=== PATIENT | male | born 1945 | race Caucasian/White ===

== ENCOUNTER 2017-08-02 12:26 | Inpatient (IN) | payer OTHER ==
[~2017-08-02] VITALS: Ht 188 cm; Wt 106.3 kg
[~2017-08-02 12:26] MED LIST: AMLO2.5T PO; CALCTAB25 PO; CHOL1TAB42 PO; CLOP75TA28 PO; FENO160T8 PO; GABA400C PO; HYDR-531 PO; ISOS30TA4 PO; LEVO25TA6 PO; METF-370 PO; METO-158 PO; METO25TA3 PO; NIAC500T71 PO; OMEG120015 PO; PANT40TA2 PO; SIMV20TA90 PO; [UNRECOGNIZED DRUG - CODE] PO
[2017-08-02] MEDS ORDERED: SODIUM CHLORIDE 0.9% 1,000 ML IV ONE (12:59)
[2017-08-02 13:32] LABS: Basophils # (auto) 0 uL; Basophils % (auto) 0.4 % (0.0-2.0); Eosinophils # (auto) 0.1 uL; Mean Corpuscular Hgb Conc. 32.3 g/dL (32.0-36.0); Nucleated Red Blood Cells % 0.2 %
[2017-08-02 13:33] LABS: Eosinophils % (auto) 0.7 % (0.0-7.0); Hematocrit 52.8 % (41.0-53.0); Hemoglobin 17.1 g/dL (13.5-17.5); Lymphocytes % (auto) 27.8 % (10.0-50.0); Mean Corpuscular Hemoglobin 27.8 pg (28.0-32.0); Mean Corpuscular Volume 85.9 fL (80.0-100.0); Monocytes # (auto) 0.7 uL; Monocytes % (auto) 6.9 % (0.0-12.0); Neutrophils # (auto) 6.8 uL; Neutrophils % (auto) 64.2 % (37.0-80.0); Platelet Count (auto) 276 10^3/uL (140-450); Red Blood Cells 6.14 10^6/uL (4.5-5.90); Red Cell Distribution Width 16.3 % (11.8-14.3); White Blood Cell 10.6 10^3/uL (4.4-10.8)
[2017-08-02 13:55] LABS: INR 1.15 (0.9-1.15); Partial Thromboplastin Time 30.3 sec (22.64-33.71); Prothrombin Time 12.5 sec (9.37-12.3)
[2017-08-02 14:22] LABS: Albumin 3.6 g/dL (3.4-5.0); BUN/Creatinine Ratio 21.7; Bilirubin, Total 0.7 mg/dL (0.2-1.0); Calcium 9.3 mg/dL (8.5-10.1); Potassium 4.8 mmol/L (3.5-5.1); Total Protein 8.1 g/dL (6.4-8.2)
[2017-08-02] MEDS ORDERED: ENOXAPARIN SOD 100 MG/1 ML SYRINGE SC ONE (14:45)
[2017-08-02] MEDS ORDERED: ASPirin 81 mg TAB PO ONE (14:45)
[2017-08-02] MEDS ORDERED: NITROGLYCERIN 0.4 MG SL TAB SL PRN (15:00)
[2017-08-02] MEDS ORDERED: CLOPIDOGREL BISULFATE 75 MG TAB PO ONE (15:00)
[2017-08-02] MEDS ORDERED: MORPHINE SULF INJ 2 MG/ML SYRINGE 1ML IV PRN (15:00)
[2017-08-02] MEDS ORDERED: DEXTROSE (50%) 50ML SYRG IV PRN (15:15)
[2017-08-02] MEDS ORDERED: SODIUM CHLORIDE 0.9% 1,000 ML IV SCH (16:40)
[2017-08-02] MEDS ORDERED: diphenhdrAMINE HCL 50 MG/1 ML VL IV ONE (16:45)
[2017-08-02] MEDS ORDERED: cloNIDine 0.2 mg/24hr 7DAY PATCH TD ONE (17:00)
[2017-08-02] MEDS: InsuLIN REG 1unit/0.01ml Soln (100units/ml) SC SCH ×2 (17:00→22:04)
[2017-08-02] MEDS: ACCU-CHEK COMFORT CURVE STRIP VI SCH ×2 (17:14→22:00)
[2017-08-02] MEDS ORDERED: cloNIDine HCL 0.1 MG TAB PO ONE (17:30)
[2017-08-02 19:45] VITALS: BP 144/72
[2017-08-02] MEDS ORDERED: methylPREDNISolone SOD SUCC 40 MG/ML VL IM ONE (19:45)
[2017-08-02 22:00] VITALS: BP 144/72
[2017-08-02] MEDS: ENOXAPARIN SOD 120 MG/0.8 ML SYRINGE SC SCH (22:00)
[2017-08-02 23:38] LABS: Urine Bacteria NONE SEEN /hpf (None Seen); Urine Blood Negative /uL (Negative); Urine Specific Gravity 1.012 (1.001-1.035); Urine WBC <1 /hpf (0 - 3)
[2017-08-03 01:50] LABS: Albumin 3.2 g/dL (3.4-5.0); BUN/Creatinine Ratio 19.8; Potassium 4.6 mmol/L (3.5-5.1)
[2017-08-03 02:07] LABS: Bilirubin, Total 0.5 mg/dL (0.2-1.0); Total Protein 7.3 g/dL (6.4-8.2)
[2017-08-03 05:11] VITALS: BP 131/77
[2017-08-03] MEDS: HYDROcodone-ACET 5/325MG TAB PO PRN ×3 (06:05→23:30)
[2017-08-03 06:33] LABS: Basophils # (auto) 0 uL; Basophils % (auto) 0.1 % (0.0-2.0); Eosinophils # (auto) 0 uL; Eosinophils % (auto) 0.2 % (0.0-7.0); Hematocrit 50.8 % (41.0-53.0); Hemoglobin 16.7 g/dL (13.5-17.5); Lymphocytes # (auto) 1.9 uL; Lymphocytes % (auto) 25.6 % (10.0-50.0); Mean Corpuscular Hgb Conc. 32.9 g/dL (32.0-36.0); Mean Corpuscular Volume 85.2 fL (80.0-100.0); Monocytes # (auto) 0.2 uL; Monocytes % (auto) 2.1 % (0.0-12.0); Neutrophils # (auto) 5.2 uL; Nucleated Red Blood Cells % 0.1 %; Platelet Count (auto) 260 10^3/uL (140-450); Red Blood Cells 5.96 10^6/uL (4.5-5.90); White Blood Cell 7.3 10^3/uL (4.4-10.8)
[2017-08-03] MEDS: ACCU-CHEK COMFORT CURVE STRIP VI SCH ×4 (06:41→21:45)
[2017-08-03] MEDS: InsuLIN REG 1unit/0.01ml Soln (100units/ml) SC SCH ×5 (06:51→21:54)
[2017-08-03 08:00] VITALS: BP 152/77
[2017-08-03 09:00] VITALS: BP 152/77
[2017-08-03] MEDS: CLOPIDOGREL BISULFATE 75 MG TAB PO SCH (09:46)
[2017-08-03] MEDS: ASPirin 325 MG TAB PO SCH (09:46)
[2017-08-03] MEDS: ENOXAPARIN SOD 120 MG/0.8 ML SYRINGE SC SCH ×2 (09:48→21:45)
[2017-08-03 12:23] VITALS: BP 125/60
[2017-08-03 17:00] VITALS: BP 128/75
[2017-08-03 22:00] VITALS: BP 102/68
[2017-08-04 05:00] VITALS: BP 123/79
[2017-08-04] MEDS: InsuLIN REG 1unit/0.01ml Soln (100units/ml) SC SCH ×3 (06:08→17:48)
[2017-08-04] MEDS: ACCU-CHEK COMFORT CURVE STRIP VI SCH ×3 (06:08→17:00)
[2017-08-04] MEDS: HYDROcodone-ACET 5/325MG TAB PO PRN ×2 (06:48→19:56)
[2017-08-04 09:00] VITALS: BP 136/86
[2017-08-04] MEDS: ENOXAPARIN SOD 120 MG/0.8 ML SYRINGE SC SCH ×2 (10:09→22:23)
[2017-08-04] MEDS: ASPirin 325 MG TAB PO SCH (10:09)
[2017-08-04] MEDS: CLOPIDOGREL BISULFATE 75 MG TAB PO SCH (10:09)
[2017-08-04 13:00] VITALS: BP 105/67
[2017-08-04] MEDS: guaiFENesin-DM 100/10mg/5ml SYR PO PRN ×2 (13:16→18:22)
[2017-08-04] MEDS: ALBUTEROL SULF 2.5 MG/0.5ML(0.5%) NEB SOLN NEB SCH ×3 (16:08→22:49)
[2017-08-04] MEDS: IPRATROPIUM BROM 0.5 MG/2.5ML INH SOL NEB SCH ×3 (16:08→22:49)
[2017-08-04 17:00] VITALS: BP 116/73
[2017-08-04] MEDS ORDERED: DEXTROSE (50%) 50ML SYRG IV PRN (20:30)
[2017-08-04 20:38] LABS: Cholesterol 162 mg/dL (< 200); HDL Cholesterol 30 mg/dL (40-59); LDL Cholesterol 115 mg/dL (< 100); Triglycerides 197 mg/dL (< 150)
[2017-08-04] MEDS: FAMOTIDINE 20 MG TAB PO SCH (22:22)
[2017-08-04 22:31] VITALS: BP 116/73
[2017-08-04 22:47] VITALS: BP 114/73
[2017-08-05] MEDS: ACCU-CHEK COMFORT CURVE STRIP VI SCH ×7 (00:17→23:30)
[2017-08-05] MEDS: ALBUTEROL SULF 2.5 MG/0.5ML(0.5%) NEB SOLN NEB SCH ×6 (02:17→22:44)
[2017-08-05] MEDS: IPRATROPIUM BROM 0.5 MG/2.5ML INH SOL NEB SCH ×6 (02:17→22:44)
[2017-08-05] MEDS: InsuLIN REG 1unit/0.01ml Soln (100units/ml) SC SCH ×7 (04:00→23:30)
[2017-08-05] MEDS: guaiFENesin-DM 100/10mg/5ml SYR PO PRN ×3 (04:12→21:58)
[2017-08-05 05:43] VITALS: BP 124/92
[2017-08-05] MEDS ORDERED: IOHEXOL 350 MG/ML 100ML IJ ONE (07:00)
[2017-08-05] MEDS ORDERED: LIDOCAINE 2%HCL (LOCAL ANESTH.) INJ 20ML MDV ONE (07:01)
[2017-08-05 07:16] LABS: Basophils # (auto) 0.1 uL; Basophils % (auto) 0.6 % (0.0-2.0); Eosinophils # (auto) 0.2 uL; Lymphocytes # (auto) 5.2 uL; Monocytes # (auto) 0.9 uL; White Blood Cell 12.4 10^3/uL (4.4-10.8)
[2017-08-05 07:18] LABS: Eosinophils % (auto) 1.5 % (0.0-7.0); Hematocrit 54.3 % (41.0-53.0); Hemoglobin 17.7 g/dL (13.5-17.5); Lymphocytes % (auto) 41.7 % (10.0-50.0); Mean Corpuscular Hgb Conc. 32.7 g/dL (32.0-36.0); Mean Corpuscular Volume 85.7 fL (80.0-100.0); Monocytes % (auto) 7.7 % (0.0-12.0); Neutrophils % (auto) 48.5 % (37.0-80.0); Nucleated Red Blood Cells % 0.3 %; Platelet Count (auto) 320 10^3/uL (140-450); Red Blood Cells 6.34 10^6/uL (4.5-5.90); Red Cell Distribution Width 15.9 % (11.8-14.3)
[2017-08-05 07:39] LABS: BUN/Creatinine Ratio 20.2; Calcium 9.7 mg/dL (8.5-10.1); Potassium 4.2 mmol/L (3.5-5.1)
[2017-08-05 08:59] VITALS: BP 112/78
[2017-08-05] MEDS: ENOXAPARIN SOD 120 MG/0.8 ML SYRINGE SC SCH ×3 (10:00→21:57)
[2017-08-05] MEDS ORDERED: fentaNYL CITRATE 100 MCG/2 ML VL ONE (10:32)
[2017-08-05] MEDS ORDERED: MIDAZOLAM HCL 1MG/1ML-2 ML VIAL ONE (10:33)
[2017-08-05] MEDS ORDERED: SODIUM CHL 0.9% 50 ML ONE (10:33)
[2017-08-05] MEDS ORDERED: ANGIOMAX 250 MG VIAL IV ONE (10:34)
[2017-08-05] MEDS ORDERED: diphenhdrAMINE HCL 50 MG/1 ML VL ONE (10:48)
[2017-08-05] MEDS: AZITHROMYCIN 250 MG TAB PO SCH (14:16)
[2017-08-05] MEDS: ASPirin 325 MG TAB PO SCH (14:16)
[2017-08-05] MEDS: FAMOTIDINE 20 MG TAB PO SCH ×2 (14:16→21:47)
[2017-08-05] MEDS: CLOPIDOGREL BISULFATE 75 MG TAB PO SCH (14:16)
[2017-08-05] MEDS: HYDROcodone-ACET 5/325MG TAB PO PRN ×2 (14:27→20:54)
[2017-08-05 16:34] VITALS: BP 96/61
[2017-08-05 21:30] VITALS: BP 100/60
[2017-08-06] MEDS: ALBUTEROL SULF 2.5 MG/0.5ML(0.5%) NEB SOLN NEB SCH ×6 (02:00→18:00)
[2017-08-06] MEDS: IPRATROPIUM BROM 0.5 MG/2.5ML INH SOL NEB SCH ×6 (02:00→18:00)
[2017-08-06] MEDS: InsuLIN REG 1unit/0.01ml Soln (100units/ml) SC SCH ×4 (03:45→16:00)
[2017-08-06] MEDS: ACCU-CHEK COMFORT CURVE STRIP VI SCH ×4 (03:45→17:06)
[2017-08-06 05:00] VITALS: BP 93/69
[2017-08-06 06:05] LABS: INR 1.1 (0.9-1.15); Partial Thromboplastin Time 30.6 sec (22.64-33.71)
[2017-08-06] MEDS ORDERED: HEPARIN IN NS 1000Units/500mL 1,500 ML ONE (07:10)
[2017-08-06] MEDS ORDERED: LIDOCAINE 2%HCL (LOCAL ANESTH.) INJ 20ML MDV ONE (07:10)
[2017-08-06] MEDS ORDERED: IOHEXOL 350 MG/ML 100ML IJ ONE ×2 (07:10→13:55)
[2017-08-06 07:16] LABS: Hemoglobin 18.1 g/dL (13.5-17.5); Neutrophils # (auto) 7.7 uL
[2017-08-06 07:18] LABS: Basophils # (auto) 0 uL; Basophils % (auto) 0.4 % (0.0-2.0); Eosinophils # (auto) 0.3 uL; Eosinophils % (auto) 2.4 % (0.0-7.0); Lymphocytes # (auto) 2.8 uL; Lymphocytes % (auto) 23.4 % (10.0-50.0); Mean Corpuscular Hemoglobin 27.5 pg (28.0-32.0); Mean Corpuscular Hgb Conc. 32.2 g/dL (32.0-36.0); Mean Corpuscular Volume 85.4 fL (80.0-100.0); Monocytes % (auto) 8.7 % (0.0-12.0); Neutrophils % (auto) 65.1 % (37.0-80.0); Nucleated Red Blood Cells % 0.1 %; Platelet Count (auto) 316 10^3/uL (140-450); Red Blood Cells 6.59 10^6/uL (4.5-5.90); Red Cell Distribution Width 16.1 % (11.8-14.3); White Blood Cell 11.8 10^3/uL (4.4-10.8)
[2017-08-06 07:24] LABS: Hematocrit 56.3 % (41.0-53.0)
[2017-08-06 07:27] LABS: Albumin 3.3 g/dL (3.4-5.0); BUN/Creatinine Ratio 21.9; Bilirubin, Total 0.9 mg/dL (0.2-1.0); Calcium 9.3 mg/dL (8.5-10.1); Potassium 4.3 mmol/L (3.5-5.1); Total Protein 7.6 g/dL (6.4-8.2)
[2017-08-06] MEDS ORDERED: fentaNYL CITRATE 100 MCG/2 ML VL ONE (08:00)
[2017-08-06] MEDS ORDERED: MIDAZOLAM HCL 1MG/1ML-2 ML VIAL ONE ×2 (08:00→08:44)
[2017-08-06] MEDS ORDERED: ANGIOMAX 250 MG VIAL IV ONE ×2 (08:00→09:25)
[2017-08-06] MEDS ORDERED: SODIUM CHL 0.9% 50 ML ONE ×2 (08:00→09:25)
[2017-08-06 09:00] VITALS: BP_SYST 130; BP_SYST 96; BP_DIAS 64; BP_DIAS 67
[2017-08-06] MEDS: ENOXAPARIN SOD 120 MG/0.8 ML SYRINGE SC SCH (10:00)
[2017-08-06] MEDS: CLOPIDOGREL BISULFATE 75 MG TAB PO SCH (11:50)
[2017-08-06] MEDS: AZITHROMYCIN 250 MG TAB PO SCH (11:50)
[2017-08-06] MEDS: FAMOTIDINE 20 MG TAB PO SCH (11:51)
[2017-08-06] MEDS: ASPirin 325 MG TAB PO SCH (11:51)
[2017-08-06] MEDS: HYDROcodone-ACET 5/325MG TAB PO PRN (12:06)
[2017-08-06 13:00] VITALS: BP 93/60
[2017-08-06] MEDS ORDERED: METO25TA3 PO (13:46)
[2017-08-06] MEDS ORDERED: FENO160T8 PO (13:46)
[2017-08-06] MEDS ORDERED: ALB5IS NEB (13:46)
[2017-08-06] MEDS ORDERED: ASPI-111 PO (13:46)
[2017-08-06] MEDS ORDERED: CLOP75TA28 PO (13:46)
[2017-08-06] MEDS ORDERED: AZIT250T7 PO (13:46)
[2017-08-06] MEDS ORDERED: ATO40T PO (13:46)
[2017-08-06] MEDS ORDERED: DEXTSYP31 OR (13:48)
[2017-08-06] MEDS ORDERED: BUDESONIDE (INHALATION) 0.5 MG/2 ML NEB NEB ONE (14:00)
[2017-08-06] MEDS ORDERED: methylPREDNISolone SOD SUCC 40 MG/ML VL IV ONE (14:30)
[2017-08-06] MEDS ORDERED: FLUT250M2 INH (14:53)
[2017-08-06] MEDS ORDERED: ALBU0.08 HHN (14:54)
[2017-08-06 15:57] VITALS: BP 103/64
[2017-08-06 16:20] VITALS: BP 103/64
[2017-08-06 17:00] VITALS: BP 103/65
[2017-08-06] MEDS ORDERED: methylPREDNISolone SOD SUCC 40 MG/ML VL IV SCH (22:00)
== END 2017-08-06 19:30 | disposition home health service (06) | DRG 250 ==
LOC: EDBD 12:26 → ER 12:26 → TELE 12:27 → TELE-CENTR 19:45
PROVIDERS: ADMIT Internal Medicine; ATTEND Internal Medicine
PROC: 4A023N7 Measurement of Cardiac Sampling and Pressure, Left Heart, Percutaneous Approach (ICD-10-PCS; principal; 2017-08-05)
PROC: B2111ZZ Fluoroscopy of Multiple Coronary Arteries using Low Osmolar Contrast (ICD-10-PCS; 2017-08-05)
PROC: 02703ZZ Dilation of Coronary Artery, One Artery, Percutaneous Approach (ICD-10-PCS; 2017-08-06)
DX: I21.4 Non-ST elevation (NSTEMI) myocardial infarction (principal); J96.21 Acute and chronic respiratory failure with hypoxia; I74.5 Embolism and thrombosis of iliac artery; J44.0 Chronic obstructive pulmonary disease with (acute) lower respiratory infection; J44.1 Chronic obstructive pulmonary disease with (acute) exacerbation; I13.0 Hypertensive heart and chronic kidney disease with heart failure and stage 1 through stage 4 chronic kidney disease, or unspecified chronic kidney disease; I50.9 Heart failure, unspecified; E11.22 Type 2 diabetes mellitus with diabetic chronic kidney disease; J20.9 Acute bronchitis, unspecified; N18.9 Chronic kidney disease, unspecified; I25.119 Atherosclerotic heart disease of native coronary artery with unspecified angina pectoris; B34.9 Viral infection, unspecified; E78.5 Hyperlipidemia, unspecified; I25.82 Chronic total occlusion of coronary artery; Z53.9 Procedure and treatment not carried out, unspecified reason; Z87.891 Personal history of nicotine dependence; Z86.79 Personal history of other diseases of the circulatory system; Z90.49 Acquired absence of other specified parts of digestive tract; Z95.5 Presence of coronary angioplasty implant and graft; Z83.3 Family history of diabetes mellitus; Z82.49 Family history of ischemic heart disease and other diseases of the circulatory system; Z79.899 Other long term (current) drug therapy
CPT/HCPCS: 36415; 36600; 71045; 71046; 71275; 80048; 80053; 80061; 81001; 82805; 82962; 83036; 83880; 84146; 84484; 85025; 85610; 85730; 86850; 86900; 86901; 86920; 87040; 87400; 92920; 93005; 93306; 93458; 94640; 96360; 96361; 96372; 99152; J1815; J2250

== ENCOUNTER 2020-11-05 19:14 | Observation (INO) | payer OTHER ==
[~2020-11-05] VITALS: Ht 172.7 cm; Wt 108.9 kg
[~2020-11-05 19:14] MED LIST changes: +ALB5IS NEB; +ALBU0.08 HHN; -AMLO2.5T PO; +ASPI-109 PO; +ATO40T PO; +AZIT250T9 PO; +DEXTSYP31 OR; +FLUT250M2 INH; -METO-158 PO; -METO25TA3 PO; +METO25TA36 PO; -SIMV20TA90 PO
[2020-11-05 20:12] LABS: Basophils # (auto) 0 10 ^3/uL (0-0.2); Basophils % (auto) 0.7 % (0.0-2.0); Eosinophils # (auto) 0.3 10 ^3/uL (0-0.8); Eosinophils % (auto) 5.1 % (0.0-7.0); Hematocrit 41.8 % (41.0-53.0); Hemoglobin 13.9 g/dL (13.5-17.5); Lymphocytes # (auto) 1.3 10 ^3/uL (0.4-5.4); Lymphocytes % (auto) 19.3 % (10.0-50.0); Mean Corpuscular Hemoglobin 29.9 pg (28.0-32.0); Mean Corpuscular Hgb Conc. 33.1 g/dL (32.0-36.0); Mean Corpuscular Volume 90.4 fL (80.0-100.0); Monocytes # (auto) 0.7 10 ^3/uL (0-1.3); Monocytes % (auto) 10.2 % (0.0-12.0); Neutrophils # (auto) 4.3 10 ^3/uL (1.6-8.6); Neutrophils % (auto) 64.7 % (37.0-80.0); Nucleated Red Blood Cells % 0.1 %; Platelet Count (auto) 179 10^3/uL (140-450); Red Blood Cells 4.63 10^6/uL (4.5-5.90); Red Cell Distribution Width 17.7 % (11.8-14.3); White Blood Cell 6.7 10^3/uL (4.4-10.8)
[2020-11-05 20:20] LABS: Albumin 3.2 g/dL (3.4-5.0); Calcium 9.5 mg/dL (8.5-10.1); Magnesium 1.7 mg/dL (1.6-2.6); Potassium 4.3 mmol/L (3.5-5.1)
[2020-11-05 20:26] LABS: BUN/Creatinine Ratio 19.5; Bilirubin, Total 1.7 mg/dL (0.2-1.0); Total Protein 6.5 g/dL (6.4-8.2)
[2020-11-05 20:30] LABS: INR 1.54 (0.9-1.15)
[2020-11-05] MEDS ORDERED: FUROSEMIDE 40 MG/4 ML VIAL IV ONE (22:15)
[2020-11-05 23:31] LABS: Urine Bacteria NONE SEEN /hpf (None Seen); Urine Blood Negative /uL (Negative); Urine Specific Gravity 1.018 (1.001-1.035); Urine WBC <1 /hpf (0 - 3)
[2020-11-06] VITALS (7 sets, daily range): BP systolic 97–124; BP diastolic 49–77
[2020-11-06] MEDS ORDERED: MORPHINE SULF INJ 2 MG/ML SYRINGE 1ML IV PRN (00:15)
[2020-11-06] MEDS ORDERED: DEXTROSE (50%) 50ML SYRG IV ONE (00:15)
[2020-11-06] MEDS ORDERED: NITROGLYCERIN 0.4 MG SL TAB SL PRN (00:15)
[2020-11-06] MEDS: ACCU-CHEK COMFORT CURVE STRIP VI SCH ×4 (00:26→17:51)
[2020-11-06] MEDS: InsuLIN REG 1unit/0.01ml Soln (100units/ml) SC SCH ×4 (00:27→17:53)
[2020-11-06] MEDS ORDERED: HYDROcodone-ACET 10/325MG TAB PO PRN (04:30)
[2020-11-06] MEDS: FUROSEMIDE 20 MG/2 ML VIAL IV SCH (06:00)
[2020-11-06] MEDS ORDERED: ALBUTEROL SULF 2.5 MG/0.5ML(0.5%) NEB SOLN NEB SCH (06:00)
[2020-11-06] MEDS ORDERED: IPRATROPIUM BROM 0.5 MG/2.5ML INH SOL NEB PRN ×2 (06:00→12:00)
[2020-11-06] MEDS: GABAPENTIN 400 MG CAP PO SCH ×2 (06:01→14:37)
[2020-11-06] MEDS: methylPREDNISolone SOD SUCC 125 MG/2 ML VL IV SCH ×2 (06:01→14:37)
[2020-11-06] MEDS ORDERED: LEVOTHYROXINE SODIUM 25 MCG TAB PO SCH (07:00)
[2020-11-06 08:31] LABS: Basophils # (auto) 0.1 10 ^3/uL (0-0.2); Basophils % (auto) 0.9 % (0.0-2.0); Eosinophils # (auto) 0.2 10 ^3/uL (0-0.8); Eosinophils % (auto) 3.8 % (0.0-7.0); Lymphocytes # (auto) 0.9 10 ^3/uL (0.4-5.4); Lymphocytes % (auto) 13.5 % (10.0-50.0); Mean Corpuscular Hemoglobin 29.4 pg (28.0-32.0); Mean Corpuscular Hgb Conc. 32.4 g/dL (32.0-36.0); Mean Corpuscular Volume 90.7 fL (80.0-100.0); Monocytes # (auto) 0.3 10 ^3/uL (0-1.3); Monocytes % (auto) 4.6 % (0.0-12.0); Neutrophils # (auto) 4.9 10 ^3/uL (1.6-8.6); Neutrophils % (auto) 77.2 % (37.0-80.0); Platelet Count (auto) 188 10^3/uL (140-450); Red Blood Cells 4.74 10^6/uL (4.5-5.90); Red Cell Distribution Width 17.7 % (11.8-14.3); White Blood Cell 6.4 10^3/uL (4.4-10.8)
[2020-11-06 08:50] LABS: Albumin 3.4 g/dL (3.4-5.0); Potassium 4.1 mmol/L (3.5-5.1)
[2020-11-06 08:53] LABS: BUN/Creatinine Ratio 20.8; Total Protein 6.6 g/dL (6.4-8.2)
[2020-11-06] MEDS ORDERED: CALCIUM W/VIT D (600MG/400IU) TAB PO SCH (10:00)
[2020-11-06] MEDS ORDERED: CLOPIDOGREL BISULFATE 75 MG TAB PO SCH (10:00)
[2020-11-06] MEDS ORDERED: ISOSORBIDE MONONITRATE ER 60 MG TAB PO SCH (10:00)
[2020-11-06] MEDS ORDERED: FLUTICASONE SALMETEROL IN SCH (10:00)
[2020-11-06] MEDS ORDERED: ASPirin 325 MG TAB PO SCH (10:00)
[2020-11-06] MEDS ORDERED: PANTOPRAZOLE 40 MG TAB PO SCH (10:00)
[2020-11-06] MEDS ORDERED: FURO1TAB33 PO (11:32)
[2020-11-06] MEDS ORDERED: IPRA0.00 IN (11:35)
[2020-11-06] MEDS ORDERED: FUROSEMIDE 40 MG/4 ML VIAL IV ONE (12:00)
[2020-11-06] MEDS ORDERED: FUROSEMIDE 20 MG/2 ML VIAL IV SCH (12:00)
[2020-11-06] MEDS: ALBUTEROL SULF 2.5 MG/0.5ML(0.5%) NEB SOLN NEB SCH ×2 (13:40→19:08)
[2020-11-06] MEDS ORDERED: SODIUM CHLORIDE 0.9% 250 ML IV ONE (15:00)
[2020-11-06] MEDS ORDERED: FUROSEMIDE 40 MG/4 ML VIAL IV SCH (18:00)
[2020-11-06] MEDS ORDERED: METOPROLOL SUCCINATE XL 50 MG TAB PO SCH (18:00)
[2020-11-06] MEDS ORDERED: ATORVASTATIN 20 MG TAB PO SCH (22:00)
== END 2020-11-06 18:10 | disposition home or self-care (01) ==
LOC: EDBD 19:14 → ER 19:18 → INTOOBSV 11-06 00:21 → TELE 11-06 00:21 → TELE-CENTR 11-06 03:23
PROVIDERS: ADMIT Internal Medicine; ATTEND Internal Medicine
DX: I13.0 Hypertensive heart and chronic kidney disease with heart failure and stage 1 through stage 4 chronic kidney disease, or unspecified chronic kidney disease (principal); I50.33 Acute on chronic diastolic (congestive) heart failure; Z20.822 Contact with and (suspected) exposure to COVID-19; E11.22 Type 2 diabetes mellitus with diabetic chronic kidney disease; N18.30 Chronic kidney disease, stage 3 unspecified; I25.10 Atherosclerotic heart disease of native coronary artery without angina pectoris; J44.9 Chronic obstructive pulmonary disease, unspecified; E66.9 Obesity, unspecified; E78.5 Hyperlipidemia, unspecified; F32.9 Major depressive disorder, single episode, unspecified; I42.9 Cardiomyopathy, unspecified; I70.0 Atherosclerosis of aorta; Z79.51 Long term (current) use of inhaled steroids; Z79.82 Long term (current) use of aspirin; Z86.79 Personal history of other diseases of the circulatory system; Z99.81 Dependence on supplemental oxygen; Z68.36 Body mass index [BMI] 36.0-36.9, adult
CPT/HCPCS: 36415; 71045; 80053; 81001; 82962; 83036; 83605; 83735; 83880; 84484; 85025; 85610; 85730; 87426; 93005; 93306; 94640; 96361; 96372; 96374; 96375; 96376; 99285; G0378; J1815; J1940; J2930; J7030

== ENCOUNTER 2021-01-08 02:21 | Inpatient (IN) | payer OTHER ==
[~2021-01-08] VITALS: Ht 180.3 cm; Wt 108.0 kg
[~2021-01-08 02:21] MED LIST changes: -ASPI-109 PO; -AZIT250T9 PO; +FURO1TAB33 PO; +IPRA0.00 IN; +ISOS1TAB28 PO; -ISOS30TA4 PO; -METO25TA36 PO; -PANT40TA2 PO
[2021-01-08] MEDS ORDERED: levoFLOXacin 500 MG/100 ML PREMIX BAG IV ONE (02:30)
[2021-01-08] MEDS ORDERED: SODIUM CHLORIDE 0.9% 2,000 ML IV ONE (02:45)
[2021-01-08 03:02] LABS: Basophils # (auto) 0 10 ^3/uL (0-0.2); Basophils % (auto) 0.8 % (0.0-2.0); Eosinophils # (auto) 0.3 10 ^3/uL (0-0.8); Eosinophils % (auto) 6.1 % (0.0-7.0); Hematocrit 40.1 % (41.0-53.0); Hemoglobin 13.5 g/dL (13.5-17.5); Lymphocytes # (auto) 1.5 10 ^3/uL (0.4-5.4); Mean Corpuscular Hemoglobin 30.5 pg (28.0-32.0); Mean Corpuscular Hgb Conc. 33.7 g/dL (32.0-36.0); Mean Corpuscular Volume 90.5 fL (80.0-100.0); Monocytes # (auto) 0.5 10 ^3/uL (0-1.3); Monocytes % (auto) 9.6 % (0.0-12.0); Neutrophils # (auto) 3.2 10 ^3/uL (1.6-8.6); Neutrophils % (auto) 56.5 % (37.0-80.0); Red Blood Cells 4.43 10^6/uL (4.5-5.90); Red Cell Distribution Width 16.6 % (11.8-14.3); White Blood Cell 5.6 10^3/uL (4.4-10.8)
[2021-01-08 03:18] LABS: Alanine Aminotransferase 25 U/L (16-61); Albumin 3.5 g/dL (3.4-5.0); Anion Gap 7 (5-15); Aspartate Aminotransferase 32 U/L (15-37); Blood Alcohol < 3.0 mg/dL (0-5); Blood Urea Nitrogen 53 mg/dL (7-18); Calcium 9.5 mg/dL (8.5-10.1); Carbon Dioxide 28 mmol/L (21-32); Chloride 105 mmol/L (98-107); GFR African American 41 mL/min; GFR Non-African American 34 mL/min; Glucose 117 mg/dL (74-106); Potassium 3.8 mmol/L (3.5-5.1); Sodium 140 mmol/L (136-145)
[2021-01-08 03:19] LABS: INR 1.25 (0.9-1.15)
[2021-01-08 03:23] LABS: Alkaline Phosphatase 51 U/L (45-117); Bilirubin, Total 1.1 mg/dL (0.2-1.0); Total Protein 6.7 g/dL (6.4-8.2)
[2021-01-08] MEDS ORDERED: PIPERACILLIN-TAZOB 3.375GM 100 ML IV ONE (03:45)
[2021-01-08] MEDS ORDERED: VANCOMYCIN 1GM/250ML 250 ML IV ONE (03:45)
[2021-01-08 04:27] LABS: Alcohol, Urine < 3.0 mg/dL (0-10); Amphetamine Screen, Urine NEGATIVE (NEGATIVE); Benzodiazephine Screen, Urine NEGATIVE (NEGATIVE); Cocaine Screen, Urine NEGATIVE (NEGATIVE); Opiate Scree,Urine POSITIVE (NEGATIVE); Phencyclidine Screen, Urine NEGATIVE (NEGATIVE)
[2021-01-08 04:35] LABS: Barbiturate Scree,Urine NEGATIVE (NEGATIVE); Cannabinoid Screen, Urine NEGATIVE (NEGATIVE)
[2021-01-08 04:48] LABS: Urine Bacteria NONE SEEN /hpf (None Seen); Urine Blood Negative /uL (Negative); Urine Hyaline Cast MANY /lpf (0 - 2); Urine Mucus FEW (None Seen); Urine Specific Gravity 1.019 (1.001-1.035); Urine WBC 2 /hpf (0 - 3)
[2021-01-08] MEDS ORDERED: ALBUTEROL SULF 2.5 MG/0.5ML(0.5%) NEB SOLN NEB PRN ×2 (06:30→07:45)
[2021-01-08] MEDS ORDERED: ONDANSETRON HCL 4 MG/2 ML VIAL IV PRN (06:30)
[2021-01-08] MEDS ORDERED: DEXTROSE (50%) 50ML SYRG IV PRN (06:30)
[2021-01-08] MEDS ORDERED: SODIUM CHLORIDE 0.9% 1,000 ML IV ONE (06:30)
[2021-01-08] MEDS: ACCU-CHEK COMFORT CURVE STRIP VI SCH ×4 (07:00→22:48)
[2021-01-08] MEDS: InsuLIN REG 1unit/0.01ml Soln (100units/ml) SC SCH ×4 (07:00→22:43)
[2021-01-08 07:32] LABS: Basophils # (auto) 0 10 ^3/uL (0-0.2); Basophils % (auto) 0.5 % (0.0-2.0); Eosinophils # (auto) 0.3 10 ^3/uL (0-0.8); Eosinophils % (auto) 4.4 % (0.0-7.0); Hematocrit 40.4 % (41.0-53.0); Hemoglobin 13.4 g/dL (13.5-17.5); Lymphocytes # (auto) 1.4 10 ^3/uL (0.4-5.4); Lymphocytes % (auto) 23.9 % (10.0-50.0); Mean Corpuscular Hemoglobin 30.2 pg (28.0-32.0); Mean Corpuscular Hgb Conc. 33.2 g/dL (32.0-36.0); Monocytes # (auto) 0.5 10 ^3/uL (0-1.3); Monocytes % (auto) 9.4 % (0.0-12.0); Neutrophils # (auto) 3.5 10 ^3/uL (1.6-8.6); Neutrophils % (auto) 61.8 % (37.0-80.0); Nucleated Red Blood Cells % 0.2 %; Red Blood Cells 4.43 10^6/uL (4.5-5.90); Red Cell Distribution Width 16.5 % (11.8-14.3); White Blood Cell 5.7 10^3/uL (4.4-10.8)
[2021-01-08 07:50] LABS: BUN/Creatinine Ratio 26.1; Calcium 8.9 mg/dL (8.5-10.1); Potassium 3.8 mmol/L (3.5-5.1)
[2021-01-08] MEDS: CLOPIDOGREL BISULFATE 75 MG TAB PO SCH (09:44)
[2021-01-08] MEDS: methylPREDNISolone SOD SUCC 40 MG/ML VL IV SCH ×2 (09:44→22:43)
[2021-01-08] MEDS: CALCIUM W/VIT D (600MG/400IU) TAB PO SCH (09:44)
[2021-01-08 10:17] VITALS: BP 93/59
[2021-01-08] MEDS: GABAPENTIN 400 MG CAP PO SCH ×3 (13:13→23:19)
[2021-01-08] MEDS: HEPARIN SODIUM (PORCINE) 5000 UNITS/ML 1ML VIAL SC SCH ×2 (14:22→22:45)
[2021-01-08] MEDS: ATORVASTATIN 20 MG TAB PO SCH (22:44)
[2021-01-09] MEDS: HYDROcodone-ACET 10/325MG TAB PO PRN ×2 (06:04→17:22)
[2021-01-09] MEDS: LEVOTHYROXINE SODIUM 25 MCG TAB PO SCH (06:04)
[2021-01-09] MEDS: HEPARIN SODIUM (PORCINE) 5000 UNITS/ML 1ML VIAL SC SCH ×3 (06:05→20:20)
[2021-01-09] MEDS: ACCU-CHEK COMFORT CURVE STRIP VI SCH ×4 (06:13→20:33)
[2021-01-09] MEDS: InsuLIN REG 1unit/0.01ml Soln (100units/ml) SC SCH ×4 (06:14→20:32)
[2021-01-09 07:27] LABS: Basophils # (auto) 0 10 ^3/uL (0-0.2); Basophils % (auto) 0.4 % (0.0-2.0); Eosinophils # (auto) 0 10 ^3/uL (0-0.8); Eosinophils % (auto) 0.1 % (0.0-7.0); Hematocrit 41.4 % (41.0-53.0); Hemoglobin 14.3 g/dL (13.5-17.5); Lymphocytes # (auto) 1.1 10 ^3/uL (0.4-5.4); Lymphocytes % (auto) 13.8 % (10.0-50.0); Mean Corpuscular Hemoglobin 30.9 pg (28.0-32.0); Mean Corpuscular Hgb Conc. 34.5 g/dL (32.0-36.0); Mean Corpuscular Volume 89.7 fL (80.0-100.0); Monocytes # (auto) 0.2 10 ^3/uL (0-1.3); Monocytes % (auto) 3.1 % (0.0-12.0); Neutrophils # (auto) 6.4 10 ^3/uL (1.6-8.6); Neutrophils % (auto) 82.6 % (37.0-80.0); Nucleated Red Blood Cells % 0.1 %; Red Blood Cells 4.61 10^6/uL (4.5-5.90); Red Cell Distribution Width 16.5 % (11.8-14.3); White Blood Cell 7.7 10^3/uL (4.4-10.8)
[2021-01-09 07:47] LABS: BUN/Creatinine Ratio 24.4; Calcium 9.6 mg/dL (8.5-10.1); Potassium 4.3 mmol/L (3.5-5.1)
[2021-01-09] MEDS: methylPREDNISolone SOD SUCC 40 MG/ML VL IV SCH ×2 (10:28→20:21)
[2021-01-09] MEDS: CLOPIDOGREL BISULFATE 75 MG TAB PO SCH (10:28)
[2021-01-09] MEDS: CALCIUM W/VIT D (600MG/400IU) TAB PO SCH (10:28)
[2021-01-09 12:45] VITALS: BP 104/58
[2021-01-09 13:00] VITALS: BP 104/58
[2021-01-09] MEDS ORDERED: ASPI325T4 PO (13:42)
[2021-01-09] MEDS ORDERED: CARV12.544 PO (13:42)
[2021-01-09] MEDS ORDERED: GABAPENTIN 100 MG CAP PO SCH (14:00)
[2021-01-09] MEDS: GABAPENTIN 400 MG CAP PO SCH ×2 (14:09→20:20)
[2021-01-09 17:00] VITALS: BP 101/71
[2021-01-09] MEDS: ATORVASTATIN 20 MG TAB PO SCH (17:21)
[2021-01-09 20:00] VITALS: BP 111/71
[2021-01-09 22:00] VITALS: BP 111/71
[2021-01-10] MEDS: HYDROcodone-ACET 10/325MG TAB PO PRN (03:35)
[2021-01-10 04:59] VITALS: BP 110/72
[2021-01-10] MEDS: GABAPENTIN 400 MG CAP PO SCH ×2 (05:46→14:00)
[2021-01-10] MEDS: LEVOTHYROXINE SODIUM 25 MCG TAB PO SCH (05:46)
[2021-01-10] MEDS: HEPARIN SODIUM (PORCINE) 5000 UNITS/ML 1ML VIAL SC SCH ×2 (05:48→14:00)
[2021-01-10] MEDS: ACCU-CHEK COMFORT CURVE STRIP VI SCH ×2 (05:53→12:05)
[2021-01-10] MEDS: InsuLIN REG 1unit/0.01ml Soln (100units/ml) SC SCH ×2 (06:18→11:30)
[2021-01-10 09:00] VITALS: BP 135/76
[2021-01-10] MEDS: CALCIUM W/VIT D (600MG/400IU) TAB PO SCH (10:36)
[2021-01-10] MEDS: CLOPIDOGREL BISULFATE 75 MG TAB PO SCH (10:36)
[2021-01-10] MEDS: methylPREDNISolone SOD SUCC 40 MG/ML VL IV SCH (10:36)
[2021-01-10 12:47] VITALS: BP 119/78
== END 2021-01-10 15:45 | disposition home or self-care (01) | DRG 70 ==
LOC: EDBD 02:21 → ER 02:21 → OVERFLOW 06:57 → TELE-WESTW 01-09 11:50
PROVIDERS: ADMIT Hospitalist; ATTEND Hospitalist
DX: G93.41 Metabolic encephalopathy (principal); J96.21 Acute and chronic respiratory failure with hypoxia; J44.1 Chronic obstructive pulmonary disease with (acute) exacerbation; L03.116 Cellulitis of left lower limb; L03.115 Cellulitis of right lower limb; I13.0 Hypertensive heart and chronic kidney disease with heart failure and stage 1 through stage 4 chronic kidney disease, or unspecified chronic kidney disease; J98.11 Atelectasis; N17.9 Acute kidney failure, unspecified; T40.2X1A Poisoning by other opioids, accidental (unintentional), initial encounter; Z20.822 Contact with and (suspected) exposure to COVID-19; I27.20 Pulmonary hypertension, unspecified; I25.10 Atherosclerotic heart disease of native coronary artery without angina pectoris; I71.4 Abdominal aortic aneurysm, without rupture; N18.9 Chronic kidney disease, unspecified; E86.0 Dehydration; I50.9 Heart failure, unspecified; E11.22 Type 2 diabetes mellitus with diabetic chronic kidney disease; E11.51 Type 2 diabetes mellitus with diabetic peripheral angiopathy without gangrene; E66.9 Obesity, unspecified; Z96.652 Presence of left artificial knee joint; F32.9 Major depressive disorder, single episode, unspecified; S01.81XA Laceration without foreign body of other part of head, initial encounter; Z79.51 Long term (current) use of inhaled steroids; Z79.82 Long term (current) use of aspirin; Z82.49 Family history of ischemic heart disease and other diseases of the circulatory system; Z83.3 Family history of diabetes mellitus; Z86.73 Personal history of transient ischemic attack (TIA), and cerebral infarction without residual deficits; Z87.891 Personal history of nicotine dependence; Z90.49 Acquired absence of other specified parts of digestive tract; Z79.84 Long term (current) use of oral hypoglycemic drugs; Z79.899 Other long term (current) drug therapy; Y92.89 Other specified places as the place of occurrence of the external cause; Z68.33 Body mass index [BMI] 33.0-33.9, adult
CPT/HCPCS: 36415; 36600; 70450; 71045; 71250; 78582; 80048; 80053; 80307; 80320; 81001; 82805; 82962; 83605; 83735; 83880; 84484; 85025; 85379; 85610; 85730; 87040; 87081; 87086; 87426; 93005; 93925; 93970; 96361; 96365; 96375; 99291; G0378; J1815; J1956; J2543